=== PATIENT | male | born 1960 | race African-American/Black ===

== ENCOUNTER 2018-04-04 18:29 | Emergency (ER) | payer OTHER ==
[~2018-04-04] VITALS: Ht 182.9 cm; Wt 97.7 kg
[2018-04-04 18:32] VITALS: TEMP 97
[2018-04-04] MEDS ORDERED: NORCO 325 MG-51 TAB PO (18:48)
[2018-04-04] MEDS ORDERED: QBRELIS1 MG/1 ML (19:11)
[2018-04-04] MEDS ORDERED: KAPSPARGO SPRIN25 MG (19:12)
[2018-04-04] MEDS ORDERED: CRESTOR 10MG10 MG (19:12)
[2018-04-04 19:45] VITALS: BP 153/98; PULSE 89
== END 2018-04-04 19:45 | disposition home or self-care (01) ==
LOC: COL.ER 18:29
DX: T23.202A Burn of second degree of left hand, unspecified site, initial encounter (principal); T23.201A Burn of second degree of right hand, unspecified site, initial encounter; I10 Essential (primary) hypertension; E78.00 Pure hypercholesterolemia, unspecified; X12.XXXA Contact with other hot fluids, initial encounter; Y92.009 Unspecified place in unspecified non-institutional (private) residence as the place of occurrence of the external cause
CPT/HCPCS: J3010

== ENCOUNTER 2018-06-11 22:50 | Emergency (ER) | payer OTHER ==
[2018-06-11 22:50] VITALS: TEMP 97.8
[~2018-06-11 22:50] MED LIST: CRESTOR 10MG10 MG; KAPSPARGO SPRIN25 MG; NORCO 325 MG-51 TAB PO; QBRELIS1 MG/1 ML
[2018-06-12 03:15] VITALS: BP 147/101; PULSE 57
[2018-06-12 23:56] LABS: INR 1.1 (0.8-3.0); PROTHROMBIN TIME 12.6 SECONDS (9.7-12.8)
[2018-06-12 23:57] LABS: ALBUMIN 4.2 gm/dL (3.5-5.0); BILIRUBIN,TOTAL 0.5 mg/dL (0.0-1.0); CALCIUM 9.3 mg/dL (8.4-10.2); CREATININE, serum 0.98 mg/dL (0.66-1.25); POTASSIUM 3.3 mmol/L (3.4-5.0); TOTAL PROTEIN 7.3 gm/dL (6.4-8.2); TROPONIN-I 0.018 ng/mL (0.000-0.035)
[2018-06-12 23:58] LABS: BASO % 0.7 % (0.0-2.0); EOS # 0.1 (0.0-0.7); EOS % 1.5 % (0-4.0); GRAN # 3.2 (1.4-6.5); GRAN % 54.4 % (42.2-75.2); HEMOGLOBIN 14.8 g/dl (13.5-18.0); LYMPH # 2.1 (1.2-3.4); MEAN CELL VOLUME 89 fl (80.0-100.0); MEAN CORPUSCULAR HEMOGLOBIN 31 pg (27.0-31.0); MEAN CORPUSCULAR HGB CONC 34 g/dl (33.0-37.0); MEAN PLATELET VOLUME 9.7 fl (7.4-10.4); MONO # 0.5 (0.1-0.6); MONO % 7.7 % (1.7-9.3); PLATELET COUNT 199 K/mm3 (130-400); RED BLOOD COUNT 4.82 M/mm3 (4.20-5.60); REDCELL DISTRIBUTION WIDTH-CV 13.1 % (11.5-14.5)
[2018-06-13] MEDS ORDERED: LIPITOR 10MG10 MG PO (09:17)
== END 2018-06-12 03:15 | disposition short-term general hospital (02) ==
LOC: COL.ER 22:50
PROVIDERS: Family Medicine
DX: I21.4 Non-ST elevation (NSTEMI) myocardial infarction (principal); I25.41 Coronary artery aneurysm; I10 Essential (primary) hypertension; E78.5 Hyperlipidemia, unspecified; I25.2 Old myocardial infarction; I25.10 Atherosclerotic heart disease of native coronary artery without angina pectoris; F17.210 Nicotine dependence, cigarettes, uncomplicated; Z95.5 Presence of coronary angioplasty implant and graft; Z86.79 Personal history of other diseases of the circulatory system

== ENCOUNTER 2021-09-18 11:23 | Emergency (ER) | payer OTHER ==
[~2021-09-18] VITALS: Ht 182.9 cm; Wt 101.4 kg
[~2021-09-18 11:23] MED LIST changes: +ASPIRIN 81M81 MG/TA2 PO; +COUMADIN 2MG2 MG/TAB PO; +IMDUR 60MG60 MG/TAB PO; +LIPITOR 10MG10 MG PO; +LIPITOR 80MG80 MG PO; +PRINZIDE 12.5 M1 TA1 PO; +TOPROL XL100 MG PO
[2021-09-18 11:27] VITALS: TEMP 97.4
[2021-09-18 12:03] LABS: BASO % 0.8 % (0.0-2.0); EOS % 0.8 % (0.0-4.0); GRAN # 3.3 K/mm3 (1.4-6.5); HEMOGLOBIN 14.1 g/dl (13.5-18.0); LYMPH # 1.5 K/mm3 (1.2-3.4); LYMPH % 28.7 % (20.0-51.0); MEAN CELL VOLUME 87 fl (80.0-100.0); MEAN CORPUSCULAR HEMOGLOBIN 30 pg (27-31); MEAN CORPUSCULAR HGB CONC 34 g/dl (33.0-37.0); MEAN PLATELET VOLUME 9.6 fl (7.4-10.4); MONO # 0.3 K/mm3 (0.1-0.6); MONO % 6.3 % (1.7-9.3); PLATELET COUNT 226 K/mm3 (130-400); REDCELL DISTRIBUTION WIDTH-CV 14.4 % (11.5-14.5)
[2021-09-18 12:17] LABS: BILIRUBIN,TOTAL 0.7 mg/dL (0.2-1.2); CALCIUM 9.5 mg/dL (8.4-10.2); CREATININE, serum 1.04 mg/dL (0.72-1.25); POTASSIUM 3.9 mmol/L (3.5-4.5); TOTAL PROTEIN 7.3 gm/dL (6.2-8.1)
[2021-09-18] MEDS ORDERED: PERCOCET 325 MG1 TA2 PO (15:27)
[2021-09-18] MEDS ORDERED: FLEXERIL 1010 MG/TAB PO (15:27)
[2021-09-18 16:02] VITALS: BP 145/94; PULSE 60
== END 2021-09-18 16:04 | disposition home or self-care (01) ==
LOC: COL.ER 11:23
PROVIDERS: Personal Emergency Response Attendant
DX: M54.9 Dorsalgia, unspecified (principal); I72.3 Aneurysm of iliac artery; I71.4 Abdominal aortic aneurysm, without rupture; F17.210 Nicotine dependence, cigarettes, uncomplicated; Z28.310 Unvaccinated for COVID-19
CPT/HCPCS: J2270; J2405; Q9967

== ENCOUNTER 2023-04-14 06:08 | Emergency (ER) | payer OTHER ==
[~2023-04-14] VITALS: Ht 182.9 cm; Wt 101.4 kg
[~2023-04-14 06:08] MED LIST changes: +FLEXERIL 1010 MG/TAB PO; +PERCOCET 325 MG1 TA2 PO
[2023-04-14 07:03] LABS: ALBUMIN 3.6 gm/dL (3.4-4.8); BILIRUBIN,TOTAL 0.6 mg/dL (0.2-1.2); C-REACTIVE PROTEIN 1.01 mg/dL (0.00-0.50); CALCIUM 9.3 mg/dL (8.4-10.2); CREATININE, serum 0.97 mg/dL (0.72-1.25); POTASSIUM 3.7 mmol/L (3.5-4.5); TOTAL PROTEIN 7.2 gm/dL (6.2-8.1)
[2023-04-14 07:25] LABS: BASO % 0.4 % (0.0-2.0); EOS % 0.4 % (0.0-4.0); GRAN % 64.7 % (42.2-75.2); HEMATOCRIT 38.7 % (42.0-52.0); LYMPH # 1.2 K/mm3 (1.2-3.4); LYMPH % 24.7 % (20.0-51.0); MEAN CELL VOLUME 88 fl (80.0-100.0); MEAN CORPUSCULAR HEMOGLOBIN 29 pg (27-31); MEAN CORPUSCULAR HGB CONC 34 g/dl (33.0-37.0); MEAN PLATELET VOLUME 9.3 fl (7.4-10.4); MONO # 0.5 K/mm3 (0.1-0.6); MONO % 9.6 % (1.7-9.3); PLATELET COUNT 166 K/mm3 (130-400); RED BLOOD COUNT 4.42 M/mm3 (4.20-5.60)
[2023-04-14 08:29] LABS: COLLECTION METHOD CLEAN CATCH
[2023-04-14 08:37] LABS: PH 6.5 (5.0-8.5); URINE APPEARANCE Clear (CLEAR/HAZY); URINE COLOR Yellow (YELLOW); URINE PROTEIN(semi-quant) Negative (NEGATIVE)
[2023-04-14 08:38] LABS: URINE BLOOD TRACE-INTACT (NEGATIVE); URINE GLUCOSE Negative (NEGATIVE); URINE KETONE Negative (NEGATIVE); URINE NITRATE Negative (NEGATIVE); URINE UROBILINOGEN 0.2 E.U/dL (0.2-1.0)
[2023-04-14 08:44] LABS: SQUAMOUS EPITHELIAL 0-2 /hpf (0-10); URINE BACTERIA None Seen /hpf (NONE SEEN); URINE RBC 0-2 /hpf (0-2)
[2023-04-14 12:11] VITALS: BP 177/101; PULSE 58; TEMP 97.8
== END 2023-04-14 12:11 | disposition short-term general hospital (02) ==
LOC: COL.ER 06:08
PROVIDERS: Emergency Medicine
DX: I71.9 Aortic aneurysm of unspecified site, without rupture (principal); Z79.01 Long term (current) use of anticoagulants; Z86.79 Personal history of other diseases of the circulatory system
CPT/HCPCS: J2270; J2405; J7030; Q9967

== ENCOUNTER 2023-06-16 20:09 | Emergency (ER) | payer OTHER ==
[~2023-06-16] VITALS: Ht 182.9 cm; Wt 99.1 kg
[2023-06-16 20:18] VITALS: TEMP 97.5
[2023-06-16] MEDS ORDERED: fentaNYL 50 MCG/ML 2 ML VIAL IV ONE (20:45)
[2023-06-16] MEDS ORDERED: diazePAM 5 MG TAB PO ONE (20:45)
[2023-06-16] MEDS ORDERED: Morphine 10 MG/ML VIAL IM ONE (23:00)
[2023-06-16] MEDS ORDERED: PERCOCET 325 MG1 TA2 PO (23:02)
[2023-06-17 00:04] VITALS: BP 143/76; PULSE 98
== END 2023-06-17 00:06 | disposition home or self-care (01) ==
LOC: COL.ER 20:09
DX: S16.1XXA Strain of muscle, fascia and tendon at neck level, initial encounter (principal); M54.6 Pain in thoracic spine; F17.210 Nicotine dependence, cigarettes, uncomplicated; X58.XXXA Exposure to other specified factors, initial encounter
CPT/HCPCS: J2270; J3010